=== PATIENT | female | born 1975 | race Caucasian/White ===

== ENCOUNTER 2016-11-17 13:42 | Emergency (ER) | payer BC ==
[~2016-11-17] VITALS: Ht 170.1 cm; Wt 70.3 kg
[~2016-11-17 13:42] MED LIST: CIPRO250 MG PO; CIPROFLOXACIN500 MG PO; DARVOCET N 1001 TAB PO; DIFLUCAN150 MG PO; FLOMAX0.4 MG PO; PERCOCET 325 MG1 TA2 PO; PRILOSEC20 MG PO; TORADOL10 MG PO; VICODIN ES 7501 TAB PO; ZOFRAN ODT4 MG SL; ZOFRAN4 MG PO
[2016-11-17 14:25] LABS: BASO % 0.4 % (0.0-1.0); EOS # 0.1 10*3/uL (0.0-0.4); EOS % 1.1 % (1.0-4.0); HEMOGLOBIN 12.9 g/dl (12.0-16.0); LYMPH # 2.1 10*3/uL (1.3-4.4); LYMPH % 24.5 % (27.0-41.0); MEAN CELL VOLUME 90.1 fl (81.0-99.0); MEAN CORPUSCULAR HGB 29.1 pg (27.0-31.0); MEAN CORPUSCULAR HGB CONC 32.3 g/dl (33.0-37.0); MEAN PLATELET VOLUME 9.7 fl (9.6-12.3); MONO # 0.4 10*3/uL (0.1-1.0); MONO % 5.2 % (3.0-9.0); NEUT # 5.8 10*3/uL (2.3-7.9); NEUT % 68.6 % (47.0-73.0); PLATELET COUNT AUTOMATED 331 10*3/uL (130-400); RED BLOOD COUNT 4.44 10*6/uL (4.10-5.10); RED CELL DISTRI WIDTH 13.4 % (0-14.5); WHITE BLOOD COUNT 8.5 10*3/uL (4.8-10.8)
[2016-11-17 14:26] LABS: BILIRUBIN NEGATIVE (NEGATIVE); BLOOD 3+ (NEGATIVE); CLARITY CLEAR (CLEAR); COLOR STRAW (YELLOW); GLUCOSE NEGATIVE (NEGATIVE); KETONE NEGATIVE (NEGATIVE); LEUKO ESTERASE NEGATIVE (NEGATIVE); NITRITE NEGATIVE (NEGATIVE); PH 6.5 (5.0-9.0); PROTEIN NEGATIVE (NEGATIVE); SPECIFIC GRAVITY <= 1.005 (1.005-1.030); UROBILINOGEN 0.2 E.U./dl (0.2-1.0)
[2016-11-17 14:36] LABS: URINE REFLEX COMMENT YES (NO); WBC 0-2 wbc/hpf (0-5)
[2016-11-17 14:39] LABS: ALBUMIN 3.6 gm/dl (3.1-4.5); ALKALINE PHOSPHATASE 80 U/L (45-117); BILIRUBIN, TOTAL 0.1 mg/dl (0.2-1.0); BUN 9 mg/dl (7-24); CARBON DIOXIDE 26 mmol/L (21-32); CHLORIDE 106 mmol/L (98-107); EST GLOM FILT AFRICAN AMERICAN > 60 ml/min; GLUCOSE 112 mg/dL (65-99); POTASSIUM 4.2 mmol/L (3.5-5.1); SGOT/AST 15 IU/L (3-35); SGPT/ALT 31 U/L (12-78); SODIUM 140 mmol/L (136-145); TOTAL PROTEIN 7.4 gm/dL (6.4-8.2)
[2016-11-24 12:08] LABS: CA OXALATE MONOHYDRATE 97 % (.); COLOR Brown (.)
== END 2016-11-17 16:41 | disposition home or self-care (01) ==
LOC: ED 13:42
PROVIDERS: Registered Nurse
DX: N20.0 Calculus of kidney (principal); Z88.6 Allergy status to analgesic agent

== ENCOUNTER 2017-02-13 22:57 | Emergency (ER) | payer BC ==
[~2017-02-13] VITALS: Ht 170.1 cm; Wt 72.6 kg
[2017-02-13] MEDS ORDERED: Kenalog 0.5% Oi15 GM T (23:05)
[2017-02-13] MEDS ORDERED: METHYLPRED-DP4 MG PO (23:05)
[2017-02-13] MEDS ORDERED: PREDNISONE10 MG PO (23:12)
[2017-02-14] MEDS ORDERED: PEPCID40 MG PO (00:02)
== END 2017-02-14 00:18 | disposition home or self-care (01) ==
LOC: ED 22:57
DX: L23.7 Allergic contact dermatitis due to plants, except food (principal); Z88.2 Allergy status to sulfonamides; Z88.6 Allergy status to analgesic agent

== ENCOUNTER → 2020-05-24 | Outpatient (CLI) | payer BC ==
[~2020-05-24] MED LIST changes: +Kenalog 0.5% Oi15 GM T; +METHYLPRED-DP4 MG PO; +PEPCID40 MG PO; +PREDNISONE10 MG PO
== END | disposition home or self-care (01) ==
LOC: COVID19 09:12
DX: U07.1 COVID-19 (principal)

== ENCOUNTER → 2021-09-22 | Outpatient (CLI) | payer BC | END | disposition home or self-care (01) | LOC: COVID19 16:50 | PROVIDERS: ATTEND Internal Medicine | DX: Z11.52 Encounter for screening for COVID-19 (principal) ==

== ENCOUNTER → 2021-11-10 | Outpatient (CLI) | payer BC ==
[2021-11-10 09:09] LABS: BASO % 0.5 % (0.0-1.0); EOS # 0.1 10*3/uL (0.0-0.4); EOS % 1.7 % (1.0-4.0); HEMATOCRIT 39.7 % (37.0-47.0); LYMPH # 1.5 10*3/uL (1.3-4.4); LYMPH % 22.4 % (27.0-41.0); MEAN CORPUSCULAR HGB CONC 32.2 g/dl (33.0-37.0); MEAN PLATELET VOLUME 9.5 fl (9.6-12.3); MONO # 0.4 10*3/uL (0.1-1.0); MONO % 5.6 % (3.0-9.0); NEUT # 4.6 10*3/uL (2.3-7.9); NEUT % 69.6 % (47.0-73.0); PLATELET COUNT AUTOMATED 377 10*3/uL (130-400); RED BLOOD COUNT 4.41 10*6/uL (4.10-5.10); RED CELL DISTRI WIDTH 13.7 % (0-14.5); RETICULOCYTE % 1.51 % (0.50-2.50); WHITE BLOOD COUNT 6.6 10*3/uL (4.8-10.8)
[2021-11-10 09:18] LABS: BILIRUBIN Negative (Negative); BLOOD 2+ (Negative); CLARITY Clear (Clear); COLOR Yellow (Yellow); GLUCOSE Negative (Negative); KETONE Negative (Negative); LEUKO ESTERASE Trace (Negative); NITRITE Negative (Negative); UROBILINOGEN 0.2 E.U./dl (0.0-1.0)
[2021-11-10 09:26] LABS: BACTERIA TRACE; MUCOUS 1+
[2021-11-10 09:30] LABS: ALBUMIN 3.6 gm/dl (3.1-4.5); BUN 8 mg/dl (7-24); CHLORIDE 108 mmol/L (98-107); CHOLESTEROL 208 mg/dL (<200); GAMMA GLUTAMYL TRANSPEPTIDASE 26 U/L (5-55); POTASSIUM 3.5 mmol/L (3.5-5.1); SODIUM 138 mmol/L (136-145)
[2021-11-10 09:33] LABS: ALKALINE PHOSPHATASE 81 U/L (45-117); CREATININE 0.79 mg/dL (0.55-1.02); SGOT/AST 15 IU/L (3-35); SGPT/ALT 27 U/L (12-78); TOTAL IRON BINDING CAPACITY 480 ug/dl (250-450); TOTAL PROTEIN 7.7 gm/dL (6.4-8.2); TRIGLYCERIDES 113 mg/dl (<150); URIC ACID 4.7 mg/dL (2.6-6.0)
[2021-11-10 09:41] LABS: IRON 60 ug/dL (50-170); LDL CHOLESTEROL 110 mg/dL (9-159)
[2021-11-10 10:24] LABS: FERRITIN 22.6 ng/mL (10.0-291.0); VITAMIN D, 25-HYDROXY 27.4 ng/mL (30-100)
[2021-11-11 06:07] LABS: RHEUMATOID ARTHRITIS FACTOR <10.0 IU/mL (<14.0)
[2021-11-11 11:07] LABS: ANTI-DSDNA ANTIBODIES <1 IU/mL (0-9)
== END | disposition home or self-care (01) ==
LOC: LAB 08:22
PROVIDERS: ATTEND Family Medicine
DX: E78.5 Hyperlipidemia, unspecified (principal); E55.9 Vitamin D deficiency, unspecified; R79.89 Other specified abnormal findings of blood chemistry; R53.83 Other fatigue

== ENCOUNTER 2024-05-11 15:27 | Emergency (ER) | payer BC ==
[~2024-05-11] VITALS: Ht 170.1 cm; Wt 83.9 kg
[2024-05-11 16:27] LABS: BASO % 0.2 % (0.0-1.0); EOS % 0.4 % (1.0-4.0); HEMATOCRIT 38.7 % (37.0-47.0); LYMPH # 1.5 10*3/uL (1.3-4.4); LYMPH % 15.8 % (27.0-41.0); MEAN CELL VOLUME 90.2 fl (81.0-99.0); MEAN CORPUSCULAR HGB 29.6 pg (27.0-31.0); MEAN CORPUSCULAR HGB CONC 32.8 g/dl (33.0-37.0); MEAN PLATELET VOLUME 9.3 fl (9.6-12.3); MONO # 0.4 10*3/uL (0.1-1.0); MONO % 4.5 % (3.0-9.0); NEUT # 7.5 10*3/uL (2.3-7.9); NEUT % 78.9 % (47.0-73.0); PLATELET COUNT AUTOMATED 371 10*3/uL (130-400); RED BLOOD COUNT 4.29 10*6/uL (4.10-5.10); RED CELL DISTRI WIDTH 13.7 % (0-14.5); WHITE BLOOD COUNT 9.6 10*3/uL (4.8-10.8)
[2024-05-11 16:36] LABS: BILIRUBIN 1+ (Negative); BLOOD 3+ (Negative); CLARITY Clear (Clear); COLOR Orange (Yellow); GLUCOSE Negative (Negative); KETONE Negative (Negative); LEUKO ESTERASE Trace (Negative); NITRITE Positive (Negative); SPECIFIC GRAVITY >= 1.030 (1.001-1.030)
[2024-05-11 16:47] LABS: ALKALINE PHOSPHATASE 84 U/L (46-116); BUN 14 mg/dl (9-23); CHLORIDE 107 mmol/L (98-107); LIPASE 37 U/L (12-53); POTASSIUM 3.8 mmol/L (3.4-5.1); SGPT/ALT 16 U/L (5-49); TOTAL PROTEIN 7.6 gm/dL (6.0-8.0)
[2024-05-11 17:05] LABS: MUCOUS 2+; RBC TNTC rbc/hpf (0-2)
[2024-05-11] MEDS ORDERED: Ondansetron4 MG PO (17:50)
[2024-05-11] MEDS ORDERED: MACROBID100 M1 PO (17:50)
[2024-05-11] MEDS ORDERED: FLOMAX0.4 MG PO (17:50)
[2024-05-11] MEDS ORDERED: KETOROLAC10 MG PO (17:50)
== END 2024-05-11 17:53 | disposition home or self-care (01) ==
LOC: ED 15:27
PROVIDERS: Physician Assistant Medical
DX: N20.9 Urinary calculus, unspecified (principal); N39.0 Urinary tract infection, site not specified; Z88.2 Allergy status to sulfonamides; Z88.5 Allergy status to narcotic agent; Z88.8 Allergy status to other drugs, medicaments and biological substances

== ENCOUNTER 2025-01-19 15:57 | Emergency (ER) | payer BC ==
[~2025-01-19] VITALS: Ht 170.1 cm; Wt 77.1 kg
[~2025-01-19 15:57] MED LIST changes: +KETOROLAC10 MG PO; +MACROBID100 M1 PO; +Ondansetron4 MG PO
[2025-01-19] MEDS ORDERED: diphenhydrAMINE hydrochloride 50 MG/ML VIAL IV ONE (16:30)
[2025-01-19] MEDS ORDERED: Metoclopramide Hydrochloride 10 MG/2 ML VIAL IV ONE (16:30)
[2025-01-19] MEDS ORDERED: SODIUM CHLORIDE 0.9% 1,000 ML IV ONE (16:30)
[2025-01-19] MEDS ORDERED: Ketorolac Tromethamine 30 MG/ML VIAL IV ONE (16:30)
[2025-01-19] MEDS ORDERED: PROMETHAZINE12.5 M2 R (18:50)
[2025-01-19] MEDS ORDERED: Dexamethasone Sodium Phospha 10 MG/1 ML VIAL IV ONE (18:55)
== END 2025-01-19 18:50 | disposition home or self-care (01) ==
LOC: ED 15:57
DX: G43.909 Migraine, unspecified, not intractable, without status migrainosus (principal); R11.2 Nausea with vomiting, unspecified; L56.8 Other specified acute skin changes due to ultraviolet radiation; Z88.2 Allergy status to sulfonamides; Z88.5 Allergy status to narcotic agent; Z88.6 Allergy status to analgesic agent; Z79.899 Other long term (current) drug therapy; Z79.2 Long term (current) use of antibiotics; Z87.442 Personal history of urinary calculi